=== PATIENT | female | born 1955 | race Caucasian/White ===

== ENCOUNTER 2021-08-17 15:21 | Inpatient (IN) | payer OTHER, MEDICAID ==
[~2021-08-17] VITALS: Ht 152.4 cm; Wt 81.9 kg
[~2021-08-17 15:21] MED LIST: LEVO125T69 PO; LITH150C8 PO; ZOLP-183 PO
[2021-08-17] MEDS ORDERED: ondansetron/PF 4mg/2ml inj IV ONE (16:25)
[2021-08-17] MEDS ORDERED: normal saline 1000ML IV soln IVB ONE ×2 (16:25→17:25)
[2021-08-17 16:37] LABS: CLARITY,URINE SLIGHTLY CLOUDY (Clear); COLOR,URINE YELLOW (Yellow); GLUCOSE, URINE NEGATIVE (Neg); KETONES,URINE TRACE mg/dl (Neg); LEUKOCYTE ESTERASE ,URINE NEGATIVE (Neg); NITRITES, URINE NEGATIVE (Neg); OCCULT BLOOD,URINE NEGATIVE (Neg); PH,URINE 5.5 (4.8-8.0); PROTEIN,URINE NEGATIVE (Neg); UROBILINOGEN,URINE 0.2 E.U/dL (0.2-1.0)
[2021-08-17 16:41] LABS: UA COLLECTION TYPE CLN CATCH MIDSTREAM
[2021-08-17 16:42] LABS: RBC,URINE NONE SEEN /HPF (0-2); WBC,URINE 0-4 /HPF (0-4)
[2021-08-17 16:43] LABS: BACTERIA,URINE FEW /HPF (Neg); MUCUS STRANDS FEW /LPF (Neg); SQUAMOUS EPITHELIAL CELL,UR MANY /LPF (FEW); STARCH,URINE MANY /HPF (NEGATIVE)
[2021-08-17 16:49] LABS: BASOPHILS # (AUTO) 0.1 X10'3 (0-0.2); BASOPHILS % (AUTO) 0.9 % (0-1); EOSINOPHILS # (AUTO) 0.1 X10'3 (0-0.9); EOSINOPHILS % (AUTO) 1.1 % (0-6); HEMATOCRIT 44.1 % (35.0-45.0); HEMOGLOBIN 14.7 g/dl (12.0-16.0); LYMPHOCYTES # (AUTO) 1.6 X10'3 (1.1-4.8); LYMPHOCYTES % (AUTO) 23.3 % (21-51); MEAN CORPUSCULAR HGB CONC 33.4 g/dL (33.0-36.5); MEAN PLATELET VOLUME 8.1 FL (7.4-10.4); MONOCYTES # (AUTO) 0.4 X10'3 (0-0.9); MONOCYTES % (AUTO) 5.6 % (2-12); NEUTROPHILS # (AUTO) 4.7 X10'3 (1.8-7.7); NEUTROPHILS % (AUTO) 69.1 % (42-75); PLATELET COUNT 360 X10'3 (140-440); RED BLOOD COUNT 5.25 X10'6 (4.20-5.60); RED CELL DISTRIBUTION WIDTH 15.9 % (11.5-14.5); WHITE BLOOD COUNT 6.8 X10'3 (4.5-11.0)
[2021-08-17 17:06] LABS: ALANINE AMINOTRANSFERASE 27 U/L (12-78); ALBUMIN 4.8 G/DL (3.4-5.0); ALBUMIN/GLOBULIN RATIO 1.5 (1.1-1.5); ALKALINE PHOSPHATASE 78 IU/L (46-116); ANION GAP 8 (8-16); ASPARTATE AMINO TRANSFERASE 18 U/L (10-37); BILIRUBIN,TOTAL 0.3 MG/DL (0.1-1.0); BLOOD UREA NITROGEN 55 MG/DL (7-18); BUN/CREATININE RATIO 16.6 (6.6-38.0); CALCIUM 10.4 MG/DL (8.5-10.1); CHLORIDE 101 MMOL/L (99-107); CREATININE 3.32 MG/DL (0.40-0.90); GLUCOSE 96 MG/DL (70-104); LIPASE 250 U/L (73-393); SODIUM 130 MMOL/L (135-145); TOTAL CARBON DIOXIDE 21.1 MMOL/L (24-32); TOTAL PROTEIN 7.9 G/DL (6.4-8.2); eGFR 14 ML/MIN
[2021-08-17 17:18] LABS: POTASSIUM 6.1 MMOL/L (3.5-5.1)
[2021-08-17] MEDS ORDERED: insulin regular, human U-100 3ml vial - multi-dose IV ONE (17:25)
[2021-08-17] MEDS ORDERED: calcium gluconate inj. 1 GM in normal saline 100ml IV soln 100 ML IV ONE (17:25)
[2021-08-17] MEDS ORDERED: dextrose 50%-water 50ml dispensing syringe IV ONE (17:25)
[2021-08-17] MEDS ORDERED: sodium bicarbonate (8.4%) 1 mEq/ml syringe IV ONE (17:25)
[2021-08-17] MEDS ORDERED: sodium polystyrene sulfonate 15gm/60ml oral suspension PO ONE (17:25)
[2021-08-17] MEDS ORDERED: CALCIUM GLUC 1gm/50ml NACL,iso 50 ML IV ONE (17:50)
[2021-08-17] MEDS ORDERED: magnesium 2GM in 50ml NS 50 ML IV PRN (18:25)
[2021-08-17] MEDS ORDERED: potassium Cl 20 mEq SR tablet PO PRN ×2 (18:25)
[2021-08-17] MEDS ORDERED: magnesium Cl slow-release 64mg tablet PO PRN (18:25)
[2021-08-17] MEDS ORDERED: acetaminophen 325mg tablet PO PRN (18:25)
[2021-08-17] MEDS ORDERED: magnesium 4gm in 100ml NS 100 ML IV PRN (18:25)
[2021-08-17] MEDS ORDERED: potassium CL 10mEq/100ml bag 100 ML IV PRN (18:25)
[2021-08-17] MEDS ORDERED: ondansetron/PF 4mg/2ml inj IV PRN (18:25)
--- NOTE | 2021-08-17 18:30 | NUR ---
Pt pink, alert, no acute/resp distress. PIV site c/d/i s complication or adverse. Family at bedside. Pt states she feels somewhat better.
[2021-08-17] MEDS: normal saline 1000ml 1,000 ML IV SCH (18:43)
[2021-08-17 18:44] LABS: MAGNESIUM 2.3 MG/DL (1.5-2.4)
[2021-08-17] MEDS: K and/or MAG REPLACEMENT MC SCH (20:00)
[2021-08-17] MEDS: hydrALAZINE 20mg/ml inj. IV SCH (20:00)
--- NOTE | 2021-08-17 20:30 | NUR ---
Pt pink, alert, no acute/resp distress. Bed in lowest position, wheels locked, call mcknight in reach. PIV site c/d/i s complication or adverse. PIV fluids infusing, no complications/adverse reaction. Pt able to reposition self PRN.
--- NOTE | 2021-08-17 22:25 | NUR ---
Pt pink, alert, no acute/resp distress. Bed in lowest position, wheels locked, call mcknight in reach. PIV site c/d/i s complication or adverse. PIV fluids infusing, no complications/adverse reaction. Pt able to reposition self PRN. Pt ambulatory to bathroom. No complications ambulating. Attempted to call report to PCU, nurse not availible, nurse to call down to ER for report when off break.
[2021-08-17 23:00] VITALS: BP 157/62
[2021-08-18 02:00] VITALS: BP 148/60
[2021-08-18] MEDS: hydrALAZINE 20mg/ml inj. IV SCH ×4 (02:00→20:35)
[2021-08-18] MEDS: normal saline 1000ml 1,000 ML IV SCH ×2 (04:25→06:53)
[2021-08-18 06:00] VITALS: BP 177/70
[2021-08-18 06:03] LABS: ALBUMIN 3.8 G/DL (3.4-5.0); ANION GAP 6 (8-16); BLOOD UREA NITROGEN 38 MG/DL (7-18); BUN/CREATININE RATIO 18.1 (6.6-38.0); CALCIUM 9.3 MG/DL (8.5-10.1); CHLORIDE 108 MMOL/L (99-107); GLUCOSE 83 MG/DL (70-104); MAGNESIUM 1.7 MG/DL (1.5-2.4); SODIUM 138 MMOL/L (135-145); TOTAL CARBON DIOXIDE 23.7 MMOL/L (24-32); eGFR 23 ML/MIN
[2021-08-18 06:16] LABS: POTASSIUM 6.1 MMOL/L (3.5-5.1)
[2021-08-18 06:20] LABS: BASOPHILS % (AUTO) 0.4 % (0-1); EOSINOPHILS # (AUTO) 0.1 X10'3 (0-0.9); EOSINOPHILS % (AUTO) 1.8 % (0-6); HEMATOCRIT 39.3 % (35.0-45.0); HEMOGLOBIN 12.9 g/dl (12.0-16.0); LYMPHOCYTES # (AUTO) 1.4 X10'3 (1.1-4.8); LYMPHOCYTES % (AUTO) 21.9 % (21-51); MEAN CORPUSCULAR HEMOGLOBIN 27.3 PG (27.0-31.0); MEAN CORPUSCULAR HGB CONC 32.7 g/dL (33.0-36.5); MEAN CORPUSCULAR VOLUME 83.4 FL (78-98); MEAN PLATELET VOLUME 8.4 FL (7.4-10.4); MONOCYTES # (AUTO) 0.4 X10'3 (0-0.9); MONOCYTES % (AUTO) 6.9 % (2-12); NEUTROPHILS # (AUTO) 4.3 X10'3 (1.8-7.7); PLATELET COUNT 271 X10'3 (140-440); RED BLOOD COUNT 4.71 X10'6 (4.20-5.60); RED CELL DISTRIBUTION WIDTH 16.1 % (11.5-14.5); WHITE BLOOD COUNT 6.2 X10'3 (4.5-11.0)
[2021-08-18] MEDS ORDERED: LISI40TA13 PO (06:20)
[2021-08-18] MEDS ORDERED: CHLO25TA10 PO (06:20)
[2021-08-18] MEDS ORDERED: MELO-102 PO (06:20)
[2021-08-18] MEDS ORDERED: LEVO137T2 PO (06:20)
[2021-08-18] MEDS ORDERED: METF-436 PO (06:20)
[2021-08-18] MEDS ORDERED: OMEP20CA16 PO (06:20)
[2021-08-18] MEDS ORDERED: ATEN50TA2 PO (06:20)
[2021-08-18] MEDS ORDERED: ONDA4TAB12 PO (06:20)
[2021-08-18] MEDS ORDERED: TRAZ-256 PO (06:20)
[2021-08-18] MEDS ORDERED: sodium polystyrene sulfonate 15gm/60ml oral suspension PO ONE (06:25)
--- NOTE | 2021-08-18 06:46 | NUR ---
Problems reprioritized. Patient report given, questions answered & plan of care reviewed with Cherry ESTRELLA.
[2021-08-18 07:04] LABS: HEMOGLOBIN A1C 5.9 % (4.5-6.2)
[2021-08-18] MEDS: K and/or MAG REPLACEMENT MC SCH ×2 (07:37→20:00)
--- NOTE | 2021-08-18 07:40 | NUR ---
Patient in room PCU 3013. I have received report from Soo ESTRELLA and had the opportunity to ask questions and assume patient care.
--- NOTE | 2021-08-18 08:15 | NUR ---
Diabetes consult: No hx of DM mentioned in MD note, current A1c 5.9 which does not classify as DM per ADA guidelines. DM ed not indicated. Addendum: 08/18/21 at [address] Amended: Links added.
[2021-08-18 10:57] LABS: ALBUMIN 3.7 G/DL (3.4-5.0); ANION GAP 13 (8-16); BLOOD UREA NITROGEN 32 MG/DL (7-18); BUN/CREATININE RATIO 17.6 (6.6-38.0); CALCIUM 8.8 MG/DL (8.5-10.1); CHLORIDE 106 MMOL/L (99-107); CREATININE 1.82 MG/DL (0.40-0.90); GLUCOSE 81 MG/DL (70-104); SODIUM 140 MMOL/L (135-145); TOTAL CARBON DIOXIDE 20.9 MMOL/L (24-32); eGFR 28 ML/MIN
[2021-08-18 11:00] VITALS: BP 155/71
[2021-08-18 11:01] LABS: POTASSIUM 5.4 MMOL/L (3.5-5.1)
[2021-08-18 15:00] VITALS: BP 165/73
--- NOTE | 2021-08-18 17:27 | NUR ---
Large Bowel Movement Achieved soft non formed
--- NOTE | 2021-08-18 18:50 | NUR ---
Patient in room PCU 3013. I have received report from Cherry ESTRELLA and had the opportunity to ask questions and assume patient care.
[2021-08-18 19:15] VITALS: BP 161/66
--- NOTE | 2021-08-18 20:42 | NUR ---
patient refused second dose of sodium polystyrene sulfonate for day shift and again for this resume writer.
[2021-08-18 22:20] VITALS: BP 119/77
[2021-08-19] MEDS: hydrALAZINE 20mg/ml inj. IV SCH ×2 (01:51→07:34)
[2021-08-19 02:10] VITALS: BP 167/60
[2021-08-19] MEDS: normal saline 1000ml 1,000 ML IV SCH (04:49)
[2021-08-19 05:57] LABS: BASOPHILS % (AUTO) 0.8 % (0-1); EOSINOPHILS # (AUTO) 0.2 X10'3 (0-0.9); EOSINOPHILS % (AUTO) 3.6 % (0-6); HEMOGLOBIN 13.3 g/dl (12.0-16.0); LYMPHOCYTES # (AUTO) 1.4 X10'3 (1.1-4.8); LYMPHOCYTES % (AUTO) 25.5 % (21-51); MEAN CORPUSCULAR HGB CONC 33.3 g/dL (33.0-36.5); MEAN CORPUSCULAR VOLUME 84.1 FL (78-98); MEAN PLATELET VOLUME 8.1 FL (7.4-10.4); MONOCYTES # (AUTO) 0.5 X10'3 (0-0.9); MONOCYTES % (AUTO) 8.6 % (2-12); NEUTROPHILS # (AUTO) 3.4 X10'3 (1.8-7.7); NEUTROPHILS % (AUTO) 61.5 % (42-75); PLATELET COUNT 245 X10'3 (140-440); RED BLOOD COUNT 4.75 X10'6 (4.20-5.60); RED CELL DISTRIBUTION WIDTH 16.2 % (11.5-14.5); WHITE BLOOD COUNT 5.4 X10'3 (4.5-11.0)
[2021-08-19 06:00] VITALS: BP 192/66
[2021-08-19 06:00] LABS: ALBUMIN 3.8 G/DL (3.4-5.0); ANION GAP 11 (8-16); BLOOD UREA NITROGEN 19 MG/DL (7-18); BUN/CREATININE RATIO 13.6 (6.6-38.0); CHLORIDE 108 MMOL/L (99-107); GLUCOSE 114 MG/DL (70-104); MAGNESIUM 1.5 MG/DL (1.5-2.4); POTASSIUM 4.5 MMOL/L (3.5-5.1); SODIUM 141 MMOL/L (135-145); TOTAL CARBON DIOXIDE 21.6 MMOL/L (24-32); eGFR 38 ML/MIN
--- NOTE | 2021-08-19 06:44 | NUR ---
Patient in room PCU 3013. I have received report from SAMEER HOLT, and had the opportunity to ask questions and assume patient care.
[2021-08-19 07:34] VITALS: BP 175/87
[2021-08-19 11:00] VITALS: BP 166/73
--- NOTE | 2021-08-19 12:45 | NUR ---
PT STABLE FOR DISCHARGE PER MD. DISCHARGE AND FOLLOW UP INSTRUCTIONS REVIEWED WITH PT. TELE BOX REMOVED. PIV REMOVED WITH TIP INTACT. PT WAS DISCHARGED TO HOME. PT WAS TRANSFERRED TO PRIVATE VEHICLE BY HOSPITAL STAFF.
--- NOTE | 2021-08-19 12:47 | NUR ---
RELIEVING RN FOR LUNCH, PT AMB WITH STEADY GAIT TO ELEVATOR, REFUSING WHEELCHAIR AT THIS TIME, DC'D HOME WITH FAMILY
== END 2021-08-19 12:49 | disposition home or self-care (01) | DRG 683 ==
LOC: ER 15:21 → ED HOLD 18:31 → UNDOADMIN 19:27 → PCU 3S 23:14
PROVIDERS: ADMIT Internal Medicine; ATTEND Internal Medicine
DX: N17.0 Acute kidney failure with tubular necrosis (principal); E87.1 Hypo-osmolality and hyponatremia; E87.5 Hyperkalemia; E03.9 Hypothyroidism, unspecified; E11.9 Type 2 diabetes mellitus without complications; F31.9 Bipolar disorder, unspecified; T50.2X5A Adverse effect of carbonic-anhydrase inhibitors, benzothiadiazides and other diuretics, initial encounter; F17.210 Nicotine dependence, cigarettes, uncomplicated; F41.9 Anxiety disorder, unspecified; G47.00 Insomnia, unspecified; I10 Essential (primary) hypertension; K21.9 Gastro-esophageal reflux disease without esophagitis; Z79.84 Long term (current) use of oral hypoglycemic drugs; Z79.899 Other long term (current) drug therapy; Z98.49 Cataract extraction status, unspecified eye; Y92.89 Other specified places as the place of occurrence of the external cause; Z79.890 Hormone replacement therapy
CPT/HCPCS: 36415; 80048; 80053; 81001; 83036; 83690; 83735; 85025; 87081; 93005; 96361; 96365; 96375; 97110; 97161; 97530; 99285; G0378; J0360; J0610; J1815; J2405; J3490; J7030

== ENCOUNTER 2022-02-12 21:47 | Inpatient (IN) | payer OTHER, MEDICAID ==
[~2022-02-12] VITALS: Ht 157.5 cm; Wt 69.4 kg
[~2022-02-12 21:47] MED LIST changes: +ALEN70TA80 PO; +AMLO5TAB16 PO; +ASCO-134 PO; +ATEN50TA2 PO; +FERR325T28 PO; -LEVO125T69 PO; +LEVO125T8 PO; +LISI40TA13 PO; -LITH150C8 PO; +METF-436 PO; +OMEP20CA16 PO; +TRAZ-256 PO; -ZOLP-183 PO
[2022-02-12] MEDS ORDERED: normal saline 1000ML IV soln IVB ONE ×2 (22:20→23:40)
[2022-02-12 22:41] LABS: BASOPHILS # (AUTO) 0.1 X10'3 (0-0.2); EOSINOPHILS # (AUTO) 0.1 X10'3 (0-0.9); EOSINOPHILS % (AUTO) 0.8 % (0-6); HEMATOCRIT 32.7 % (35.0-45.0); HEMOGLOBIN 10.9 g/dl (12.0-16.0); LYMPHOCYTES % (AUTO) 17.3 % (21-51); MEAN CORPUSCULAR HEMOGLOBIN 25.2 PG (27.0-31.0); MEAN CORPUSCULAR HGB CONC 33.3 g/dL (33.0-36.5); MEAN CORPUSCULAR VOLUME 75.7 FL (78-98); MEAN PLATELET VOLUME 8.8 FL (7.4-10.4); MONOCYTES # (AUTO) 1.2 X10'3 (0-0.9); MONOCYTES % (AUTO) 9.8 % (2-12); NEUTROPHILS # (AUTO) 8.4 X10'3 (1.8-7.7); NEUTROPHILS % (AUTO) 71.1 % (42-75); PLATELET COUNT 400 X10'3 (140-440); RED BLOOD COUNT 4.32 X10'6 (4.20-5.60); RED CELL DISTRIBUTION WIDTH 19.6 % (11.5-14.5); WHITE BLOOD COUNT 11.8 X10'3 (4.5-11.0)
[2022-02-12 23:07] LABS: ALANINE AMINOTRANSFERASE 34 U/L (12-78); ALBUMIN 4.2 G/DL (3.4-5.0); ALBUMIN/GLOBULIN RATIO 1.4 (1.1-1.5); ALKALINE PHOSPHATASE 99 IU/L (46-116); ANION GAP 16 (8-16); ASPARTATE AMINO TRANSFERASE 22 U/L (10-37); BILIRUBIN,TOTAL 0.5 MG/DL (0.1-1.0); BLOOD UREA NITROGEN 15 MG/DL (7-18); BUN/CREATININE RATIO 8.2 (6.6-38.0); CALCIUM 11.1 MG/DL (8.5-10.1); CHLORIDE 107 MMOL/L (99-107); CREATININE 1.82 MG/DL (0.40-0.90); ETHANOL < 0.010 GM/DL (0.0-0.010); GLUCOSE 103 MG/DL (70-104); POTASSIUM 4.1 MMOL/L (3.5-5.1); SODIUM 144 MMOL/L (135-145); TOTAL CARBON DIOXIDE 20.6 MMOL/L (24-32); TOTAL PROTEIN 7.3 G/DL (6.4-8.2); eGFR 28 ML/MIN
[2022-02-12] MEDS ORDERED: OLANZapine 2.5MG tablet PO STA (23:36)
[2022-02-12] MEDS ORDERED: quetiapine 100mg tablet PO STA (23:36)
--- NOTE | 2022-02-13 00:30 | NUR ---
PT ALTERED, DOES NOT ANSWER QUESTIONS REGARDING MEDICAL STATE AND HX APPROPRIATELY.
[2022-02-13 00:50] LABS: PLATELET ESTIMATE NORMAL
[2022-02-13 00:51] LABS: ANISOCYTOSIS 2+
[2022-02-13 00:52] LABS: LARGE PLATELETS FEW
[2022-02-13] MEDS ORDERED: LORazepam 2 mg/ml vial IM ONE (01:20)
[2022-02-13] MEDS ORDERED: haloperidol lactate 5mg/ml inj IM ONE (01:20)
[2022-02-13] MEDS ORDERED: diphenhydrAMINE 50 mg/ml inj IM ONE (01:20)
[2022-02-13] MEDS ORDERED: nicotine 21mg patch - 24 hr TD ONE (01:20)
--- NOTE | 2022-02-13 01:30 | NUR ---
PT BECAME AGITATED AND AGRESSIVE DURING STRAIGHT CATH PROCEDURE. STARTED YELLING AND RIPING OFF VS MONITOR EQUIPMENT. PT MADE THREATS TO STAFF STATING "I COULD TAKE ALL FIVE OF YOU ON". SECURITY CALLED. ORDERS RECIEVED.
[2022-02-13 05:52] LABS: CLARITY,URINE CLEAR (Clear); COLOR,URINE YELLOW (Yellow); GLUCOSE, URINE NEGATIVE (Neg); KETONES,URINE TRACE mg/dl (Neg); LEUKOCYTE ESTERASE ,URINE TRACE (Neg); NITRITES, URINE NEGATIVE (Neg); OCCULT BLOOD,URINE NEGATIVE (Neg); PH,URINE 6.5 (4.8-8.0); PROTEIN,URINE TRACE mg/dl (Neg); UROBILINOGEN,URINE 0.2 E.U/dL (0.2-1.0)
[2022-02-13 05:57] LABS: URINE AMPHETAMINE SCREEN POSITIVE (Neg); URINE BARBITUATE SCREEN NEGATIVE (Neg); URINE BENZODIAZEPINES SCREEN NEGATIVE (Neg); URINE CANNABINOID SCREEN NEGATIVE (Neg); URINE COCAINE SCREEN NEGATIVE (Neg); URINE METHADONE SCREEN NEGATIVE (Neg); URINE OPIATE SCREEN NEGATIVE (Neg); URINE PHENCYCLIDINE SCREEN NEGATIVE (Neg)
[2022-02-13 05:58] LABS: UA COLLECTION TYPE STRAIGHT CATH
[2022-02-13 06:00] LABS: RBC,URINE NONE SEEN /HPF (0-2)
[2022-02-13 06:01] LABS: BACTERIA,URINE FEW /HPF (Neg); MUCUS STRANDS FEW /LPF (Neg); SQUAMOUS EPITHELIAL CELL,UR MANY /LPF (FEW)
[2022-02-13] MEDS ORDERED: dextrose ORAL solution 15 GM/59 ML bottle PO ONE (06:05)
[2022-02-13] MEDS ORDERED: glucagon, human recombinant 1mg kit ONE (06:07)
--- NOTE | 2022-02-13 06:30 | NUR ---
Patient asleep, no signs of distress noted, accucheck collected, patient arousable to tactile stimulus. All safety measures in place.
--- NOTE | 2022-02-13 10:12 | NUR ---
[facility] states they will place patient on a 5150 hold at this time. Patient aware, unable to get a hold of patient's brother. Patient verbalized understanding, within sight of staff at all times.
--- NOTE | 2022-02-13 13:34 | NUR ---
Patient to Bed 23 from Main ED OF. Patient given warm blanket and laying on her right side. No distress observed. Continue to monitor.
--- NOTE | 2022-02-13 15:10 | NUR ---
Patient sleeping heavily. RN assisted Registration clerks to get information from patient Patient falls asleep between questions. Continue to monitor.
[2022-02-13] MEDS ORDERED: ALEN70TA60 PO (15:56)
[2022-02-13] MEDS ORDERED: AMLO5TAB PO (15:56)
[2022-02-13] MEDS ORDERED: FERR325T28 PO (15:56)
--- NOTE | 2022-02-13 16:51 | NUR ---
RN completed patient's Med Rec from external and verified medications with patient. Patient falls back asleep easily. Continue to monitor.
--- NOTE | 2022-02-13 16:58 | NUR ---
Patient's at bedside. appears very attentive to patient. Continue to monitor.
[2022-02-13] MEDS ORDERED: non-formulary drug (Alendronate Sodium* (Fosamax*) 1 TAB) PO SCH (18:05)
--- NOTE | 2022-02-13 18:32 | NUR ---
Patient sitting up and eating dinner. No distress observed.
[2022-02-13] MEDS: ferrous sulfate 325mg tablet PO SCH (19:50)
[2022-02-13 20:00] VITALS: BP 127/46
[2022-02-13] MEDS ORDERED: magnesium hydroxide 30ml (MOM) UD suspension PO PRN (20:05)
[2022-02-13] MEDS ORDERED: acetaminophen 325mg tablet PO PRN ×2 (20:05)
[2022-02-13] MEDS ORDERED: mag hydrox/Alum hydrox/simeth 30ml oral suspension PO PRN (20:05)
[2022-02-13] MEDS ORDERED: loperamide 2mg capsule PO PRN (20:05)
[2022-02-13] MEDS ORDERED: NICOTINE POLACRILEX 2 MG LOZENGE BC PRN (20:05)
[2022-02-13] MEDS: traZODone 50mg tablet PO SCH (21:00)
--- NOTE | 2022-02-13 21:43 | NUR ---
NURSING ADMISSION NOTE Pt was admitted to [facility] from ER overflow on 02/13/22 at 2000. Pt belongings inventoried, offered a shower which she declined. 5150 advisement completed, pt verbalized understanding. Pt was found in neighbor's lawn EMS called. Pt positive for methamphetamine. PT reports drinking 1 mixed drink per day but has not had any alcohol since 02/10/22. Pt was placed on a 5150 for behaving impulsively and erratically, making nonsensical statements and presenting disorganized. Pt has hx of bipolar disorder and a hx of psych hospitalizations. HX: diabetic type 2, HTN
[2022-02-14] MEDS: pantoprazole 40mg Tablet.DR PO SCH (07:32)
[2022-02-14] MEDS: nicotine 21mg patch - 24 hr TD SCH (07:32)
[2022-02-14] MEDS: lisinopril 20mg tablet PO SCH (07:34)
[2022-02-14] MEDS: levoTHYROXINE 125mcg tablet PO SCH (07:34)
[2022-02-14] MEDS: ferrous sulfate 325mg tablet PO SCH ×2 (07:35→20:29)
[2022-02-14 07:53] VITALS: BP 145/63
[2022-02-14] MEDS ORDERED: amLODIPine 5mg tablet PO SCH (08:00)
[2022-02-14] MEDS ORDERED: amLODIPine 5mg tablet PO ONE (08:45)
[2022-02-14 09:25] LABS: CHOLESTEROL 185 MG/DL (0-200); HDL CHOLESTEROL 35 MG/DL (35-60)
[2022-02-14 09:26] LABS: CHOL/HDL RATIO 5.3 (0.00-4.99); LDL CHOLESTEROL 123 MG/DL (50-100); TRIGLYCERIDES 120 MG/DL (20-135)
[2022-02-14] MEDS ORDERED: DEXTROSE 15 GM of carb/4 tabs (each vial/BOTTLE has 4 tablets) PO PRN ×2 (12:05)
[2022-02-14] MEDS ORDERED: glucagon, human recombinant 1mg kit SUBCUT PRN (12:05)
[2022-02-14] MEDS ORDERED: MESSAGE TO PHARMACY PO ONE (12:05)
[2022-02-14] MEDS ORDERED: insulin Lispro (HumaLOG) vial - multi-dose SQ SCH (12:05)
[2022-02-14] MEDS ORDERED: dextrose 50%-water 50ml dispensing syringe IV PRN ×2 (12:05)
--- NOTE | 2022-02-14 12:09 | NUR ---
DM consult: Per EMR pt with T2DM, well controlled with A1c 5.5% down from 5.9% 08/08/21 per EMR. TC to RN with recommendation for diet liberalization to regular from CHO controlled in view of current A1c with BG range 67-103 mg/dL since admit. Will continue to follow. Addendum: 02/14/22 at [address] Amended: Links added.
--- NOTE | 2022-02-14 17:44 | NUR ---
Nursing Progress Note: Problem: Pt was admitted to [facility] from ER overflow on 02/13/22 at 2000. Pt belongings inventoried, offered a shower which she declined. 5150 advisement completed, pt verbalized understanding. Pt was found in neighbor's lawn EMS called. Pt positive for methamphetamine. PT reports drinking 1 mixed drink per day but has not had any alcohol since 02/10/22. Pt was placed on a 5150 for behaving impulsively and erratically, making nonsensical statements and presenting disorganized. Pt has hx of bipolar disorder and a hx of psych hospitalizations. Diabetic type 2, HTN. Interventions: Establishment of rapport, ensured contract for safety, therapeutic conversation, active listening, medication administration/education/monitoring, monitoring glucose, provided distraction, direction, positive reinforcement, and Q15 minute safety checks. Response: received patient sleeping in bed at shift change. Patient awakens for breakfast and takes her medications as directed. Patient then goes to sleep and appears as though she is crashing from methamphetamine withdrawal. Patient does wake up and answer questions appropriately, and requests a shower, but then goes right back to sleep stating that she is tired. Patient does appear to be confused on basic questions about herself. Hospitalist in to see patient and ordered q.i.d. blood glucose monitoring, which at 12:00 was 107. A note was written to the pharmacy to DC all sulfonylurea medications. Plan: Patient requires interruption of current crisis and medication adjustments in a safe and therapeutic environment.
[2022-02-14 19:00] VITALS: BP 134/71
[2022-02-14] MEDS: traZODone 50mg tablet PO SCH (20:29)
[2022-02-14] MEDS ORDERED: insulin glargine (Lantus) pen - multi-dose SQ SCH (21:00)
--- NOTE | 2022-02-15 03:54 | NUR ---
Nursing Progress Note: Problem: Pt was admitted to [facility] from ER overflow on 02/13/22 at 1999. Pt belongings inventoried, offered a shower which she declined. 5150 advisement completed, pt verbalized understanding. Pt was found in neighbor's lawn EMS called. Pt positive for methamphetamine. PT reports drinking 1 mixed drink per day but has not had any alcohol since 02/10/22. Pt was placed on a 5150 for behaving impulsively and erratically, making nonsensical statements and presenting disorganized. Pt has hx of bipolar disorder and a hx of psych hospitalizations. Diabetic type 2, HTN. Interventions: Establishment of rapport, ensured contract for safety, therapeutic conversation, active listening, medication administration/education/monitoring, provided direction, positive reinforcement, and Q15 minute safety checks. Response: Patient eating dinner with peers in dining room. Patient then goes back to bed. [place] BLAISE'd. Patient takes her medications after sleeping and continues sleeping throughout the night. Plan: Patient requires interruption of current crisis and medication adjustments in a safe and therapeutic environment.
[2022-02-15] MEDS: nicotine 21mg patch - 24 hr TD SCH ×2 (08:00→08:11)
[2022-02-15] MEDS: amLODIPine 5mg tablet PO SCH (08:12)
[2022-02-15] MEDS: atorvastatin 20mg tablet PO SCH (08:13)
[2022-02-15] MEDS: pantoprazole 40mg Tablet.DR PO SCH (08:13)
[2022-02-15] MEDS: ferrous sulfate 325mg tablet PO SCH ×2 (08:13→20:08)
[2022-02-15] MEDS: levoTHYROXINE 125mcg tablet PO SCH (08:13)
[2022-02-15] MEDS: lisinopril 20mg tablet PO SCH (08:13)
[2022-02-15 08:57] VITALS: BP 153/63
[2022-02-15 10:20] LABS: CHOL/HDL RATIO 5.5 (0.00-4.99); CHOLESTEROL 180 MG/DL (0-200); HDL CHOLESTEROL 33 MG/DL (35-60); LDL CHOLESTEROL 117 MG/DL (50-100); TRIGLYCERIDES 106 MG/DL (20-135)
--- NOTE | 2022-02-15 16:55 | NUR ---
Nursing Progress Note: Problem: Pt was admitted to [facility] from ER overflow on 02/13/22. Pt was found in neighbor's lawn EMS called. Pt positive for methamphetamine. PT reports drinking 1 mixed drink per day but has not had any alcohol since 02/10/22. Pt was placed on a 5150 for behaving impulsively and erratically, making nonsensical statements and presenting disorganized. Pt has hx of bipolar disorder and a hx of psych hospitalizations. Diabetic type 2, HTN. Interventions: Establishment of rapport, ensured contract for safety, therapeutic conversation, active listening, medication administration/education/monitoring, monitoring glucose, provided distraction, direction, positive reinforcement, and Q15 minute safety checks. Response: Patient is resting quietly in bed at the start of the shift. Cooperative with medications and assessment. Patient joins her peers in the community room for meals and interacts appropriately. Noted watching TV in the community room at times. Patient denies any mental health symptoms at this time. Some confusion/ disorientation is noted. Isolates to her room most of the day. Plan: Patient requires interruption of current crisis and medication adjustments in a safe and therapeutic environment.
[2022-02-15 19:00] VITALS: BP 151/90
[2022-02-15] MEDS: ARIPIPRAZOLE 10 MG TABLET PO SCH (20:08)
[2022-02-15] MEDS: traZODone 50mg tablet PO SCH (20:08)
--- NOTE | 2022-02-16 00:25 | NUR ---
Nursing Progress Note: Problem: Pt was admitted to [facility] from ER overflow on 02/13/22. Pt was found in neighbor's lawn EMS called. Pt positive for methamphetamine. PT reports drinking 1 mixed drink per day but has not had any alcohol since 02/10/22. Pt was placed on a 5150 for behaving impulsively and erratically, making nonsensical statements and presenting disorganized. Pt has hx of bipolar disorder and a hx of psych hospitalizations. Diabetic type 2, HTN. Interventions: Establishment of rapport, ensured contract for safety, therapeutic conversation, active listening, medication administration/education/monitoring, monitoring glucose, provided distraction, direction, positive reinforcement, and Q15 minute safety checks. Response: Patient is resting quietly in bed at the start of the shift. Noted talking on the phone in the evening. Isolates to her room in the evening. Cooperative with assessment and medications. Denies any mental health symptoms. Participates in snack then goes to bed. Plan: Patient requires interruption of current crisis and medication adjustments in a safe and therapeutic environment.
[2022-02-16 08:00] VITALS: BP 164/80
[2022-02-16] MEDS: atorvastatin 20mg tablet PO SCH (08:01)
[2022-02-16] MEDS: levoTHYROXINE 125mcg tablet PO SCH (08:01)
[2022-02-16] MEDS: ferrous sulfate 325mg tablet PO SCH ×2 (08:01→20:27)
[2022-02-16] MEDS: lisinopril 20mg tablet PO SCH (08:02)
[2022-02-16] MEDS: amLODIPine 5mg tablet PO SCH (08:02)
[2022-02-16] MEDS: pantoprazole 40mg Tablet.DR PO SCH (08:02)
--- NOTE | 2022-02-16 16:58 | NUR ---
Nursing Progress Note: Problem: Pt was admitted to [facility] from ER overflow on 02/13/22. Pt was found on neighbor's lawn and EMS was called. Patient was positive for methamphetamine. PT reports drinking 1 mixed drink per day but has not had any alcohol since 02/10/22. Pt was placed on a 5150 for behaving impulsively and erratically, making nonsensical statements and presenting disorganized. Pt has history of bipolar disorder and a history of psych hospitalizations. Diabetic type 2, HTN. Interventions: Establishment of rapport, ensured contract for safety, therapeutic conversation, active listening, medication administration/education/monitoring, monitoring glucose, provided distraction, direction, positive reinforcement, and Q15 minute safety checks. Response: Received patient who was sleeping up until breakfast arrived on the unit at 0800. Patient was awakened at that time and 0800 medications were administered. Patient woke up and then ambulated to the Community Room for breakfast. Patient appeared disorganized in her speech and location, then was able to be reoriented. Patient reports I am Bipolar, and reports she smokes cigarettes but denies a need for a Nicotine Patch. Patient ambulated back and forth to/from the Community Room stating I didnt sleep last night at all. Patient reported I dont want to discuss things anymore. Patient slept all morning then did not participate in morning snack time. Patient remained calm and cooperative throughout the daytime. Patient fell asleep after lunch then participated in snack time at 1500. Denies SI, AH & VH. Patient stated Rain just got to get my medications figured out. Will continue to monitor patient. Plan: Patient requires interruption of current crisis and medication adjustments in a safe and therapeutic environment.
[2022-02-16 20:03] VITALS: BP 141/90
[2022-02-16] MEDS: ARIPIPRAZOLE 10 MG TABLET PO SCH (20:27)
[2022-02-16] MEDS: traZODone 50mg tablet PO SCH (20:27)
--- NOTE | 2022-02-17 00:14 | NUR ---
Nursing Progress Note: Problem: Pt was admitted to [facility] from ER overflow on 02/13/22. Pt was found on neighbor's lawn and EMS was called. Patient was positive for methamphetamine. PT reports drinking 1 mixed drink per day but has not had any alcohol since 02/10/22. Pt was placed on a 5150 for behaving impulsively and erratically, making nonsensical statements and presenting disorganized. Pt has history of bipolar disorder and a history of psych hospitalizations. Diabetic type 2, HTN. Interventions: Establishment of rapport, ensured contract for safety, therapeutic conversation, active listening, medication administration/education/monitoring, monitoring glucose, provided distraction, direction, positive reinforcement, and Q15 minute safety checks. Response: Pt lying in bed at start of shift. Pt got up and came to group room for snack. Socialized with other pts While eating snack than returned to room. Pt pleasant and cooperative for 1:1 assessment. Denies SI/A/V/ H. Pt says she is expecting to return to her home where she lives with her in a couple of days. She talked about her Alcohol and drug use. She is a daily user of Meth for at least the last ten years. She said when she was younger she used Cocaine. She talked a little about going to a rehab at discharge but her conversation became a little disorganized and she became guarded. Plan: Patient requires interruption of current crisis and medication adjustments in a safe and therapeutic environment.
--- NOTE | 2022-02-17 07:20 | NUR ---
Initial: Pt admitted w/ bipolar disorder per EMR. Currently on Carb control diet w/ mostly 75-100% intake of meals meeting est needs at this time. Strongly recommend liberalizing to Regular diet given A1c, BG mostly WNL through LOS and pt not on glycemic protocol. LBM 02/14. Will continue to monitor. Recs: 1. Liberalize to REGULAR DIET 2. Bowel care PRN 3. Weekly wts Addendum: 02/17/22 at [address] Amended: Links added.
[2022-02-17] MEDS: pantoprazole 40mg Tablet.DR PO SCH (07:54)
[2022-02-17] MEDS: atorvastatin 20mg tablet PO SCH (07:54)
[2022-02-17] MEDS: amLODIPine 5mg tablet PO SCH (07:54)
[2022-02-17] MEDS: levoTHYROXINE 125mcg tablet PO SCH (07:54)
[2022-02-17] MEDS: ferrous sulfate 325mg tablet PO SCH ×2 (07:55→20:52)
[2022-02-17] MEDS: lisinopril 20mg tablet PO SCH (07:55)
[2022-02-17 08:40] VITALS: BP 170/85
[2022-02-17 12:06] LABS: BASOPHILS # (AUTO) 0.1 X10'3 (0-0.2); BASOPHILS % (AUTO) 1.2 % (0-1); EOSINOPHILS # (AUTO) 0.2 X10'3 (0-0.9); EOSINOPHILS % (AUTO) 1.8 % (0-6); HEMATOCRIT 36.5 % (35.0-45.0); HEMOGLOBIN 11.9 g/dl (12.0-16.0); LYMPHOCYTES # (AUTO) 1.3 X10'3 (1.1-4.8); LYMPHOCYTES % (AUTO) 14.9 % (21-51); MEAN CORPUSCULAR HEMOGLOBIN 25.6 PG (27.0-31.0); MEAN CORPUSCULAR HGB CONC 32.7 g/dL (33.0-36.5); MEAN CORPUSCULAR VOLUME 78.2 FL (78-98); MEAN PLATELET VOLUME 8.8 FL (7.4-10.4); MONOCYTES # (AUTO) 0.7 X10'3 (0-0.9); MONOCYTES % (AUTO) 7.8 % (2-12); NEUTROPHILS # (AUTO) 6.3 X10'3 (1.8-7.7); NEUTROPHILS % (AUTO) 74.3 % (42-75); PLATELET COUNT 344 X10'3 (140-440); RED BLOOD COUNT 4.67 X10'6 (4.20-5.60); RED CELL DISTRIBUTION WIDTH 19.9 % (11.5-14.5); WHITE BLOOD COUNT 8.5 X10'3 (4.5-11.0)
[2022-02-17 12:27] LABS: ALANINE AMINOTRANSFERASE 25 U/L (12-78); ALBUMIN 3.4 G/DL (3.4-5.0); ALBUMIN/GLOBULIN RATIO 1.1 (1.1-1.5); ALKALINE PHOSPHATASE 89 IU/L (46-116); ANION GAP 5 (8-16); ASPARTATE AMINO TRANSFERASE 17 U/L (10-37); BILIRUBIN,TOTAL 0.3 MG/DL (0.1-1.0); BLOOD UREA NITROGEN 16 MG/DL (7-18); BUN/CREATININE RATIO 13.4 (6.6-38.0); CALCIUM 9.2 MG/DL (8.5-10.1); CHLORIDE 108 MMOL/L (99-107); CREATININE 1.19 MG/DL (0.40-0.90); GLUCOSE 124 MG/DL (70-104); POTASSIUM 4.1 MMOL/L (3.5-5.1); SODIUM 139 MMOL/L (135-145); TOTAL CARBON DIOXIDE 25.7 MMOL/L (24-32); TOTAL PROTEIN 6.4 G/DL (6.4-8.2); eGFR 45 ML/MIN
--- NOTE | 2022-02-17 17:26 | NUR ---
Nursing Progress Note: Problem: Pt was admitted to [facility] from ER overflow on 02/13/22. Pt was found on neighbor's lawn and EMS was called. Patient was positive for methamphetamine. PT reports drinking 1 mixed drink per day but has not had any alcohol since 02/10/22. Pt was placed on a 5150 for behaving impulsively and erratically, making nonsensical statements and presenting disorganized. Pt has history of bipolar disorder and a history of psych hospitalizations. Diabetic type 2, HTN. Interventions: Establishment of rapport, ensured contract for safety, therapeutic conversation, active listening, medication administration/education/monitoring, monitoring glucose, provided distraction, direction, positive reinforcement, and Q15 minute safety checks. Response: Patient was woke up at 0800 and her medications were administered to her at that time. Patient was informed that breakfast had arrived to the unit, and she could go to the Community Room to eat at this time. Patient ambulated and sat by her roommate and two other peers for breakfast. Patient appeared slightly disorganized at times and denies AH/VH. Patient participated in the Group Meeting held right after lunch today, then returned to rest in bed. Patient then showered late afternoon and felt much better. Will continue to monitor patient. Plan: Patient requires interruption of current crisis and medication adjustments in a safe and therapeutic environment.
[2022-02-17] MEDS ORDERED: traZODone 50mg tablet PO PRN (17:45)
[2022-02-17 19:51] VITALS: BP 162/88
[2022-02-17] MEDS: traZODone 50mg tablet PO SCH (20:52)
--- NOTE | 2022-02-18 02:05 | NUR ---
Nursing Progress Note: Problem: Pt was admitted to [facility] from ER overflow on 02/13/22. Pt was found on neighbor's lawn and EMS was called. Patient was positive for methamphetamine. PT reports drinking 1 mixed drink per day but has not had any alcohol since 02/10/22. Pt was placed on a 5150 for behaving impulsively and erratically, making nonsensical statements and presenting disorganized. Pt has history of bipolar disorder and a history of psych hospitalizations. Diabetic type 2, HTN. Interventions: Establishment of rapport, ensured contract for safety, therapeutic conversation, active listening, medication administration/education/monitoring, monitoring glucose, provided distraction, direction, positive reinforcement, and Q15 minute safety checks. Response: Pt up on unit at start of shift. Watched football game in group room with peers. Took meds. Educated on new order for additional dose of Trazodone if needed for sleep. Pt verbalized understanding. Went to bed and went to sleep. Plan: Patient requires interruption of current crisis and medication adjustments in a safe and therapeutic environment.
[2022-02-18] MEDS: ARIPIPRAZOLE 10 MG TABLET PO SCH (08:06)
[2022-02-18] MEDS: levoTHYROXINE 125mcg tablet PO SCH (08:06)
[2022-02-18] MEDS: ferrous sulfate 325mg tablet PO SCH ×2 (08:07→20:49)
[2022-02-18] MEDS: atorvastatin 20mg tablet PO SCH (08:07)
[2022-02-18] MEDS: amLODIPine 5mg tablet PO SCH (08:08)
[2022-02-18] MEDS: pantoprazole 40mg Tablet.DR PO SCH (08:09)
[2022-02-18] MEDS: lisinopril 20mg tablet PO SCH (08:09)
[2022-02-18 08:48] VITALS: BP 142/64
--- NOTE | 2022-02-18 17:41 | NUR ---
Nursing Progress Note: Problem: Pt was admitted to [facility] from ER overflow on 02/13/22. Pt was found on neighbor's lawn and EMS was called. Patient was positive for methamphetamine. PT reports drinking 1 mixed drink per day but has not had any alcohol since 02/10/22. Pt was placed on a 5150 for behaving impulsively and erratically, making nonsensical statements and presenting disorganized. Pt has history of bipolar disorder and a history of psych hospitalizations. Diabetic type 2, HTN. Interventions: Establishment of rapport, ensured contract for safety, therapeutic conversation, active listening, medication administration/education/monitoring, monitoring glucose, provided distraction, direction, positive reinforcement, and Q15 minute safety checks. Response: Received patient when I woke her up at 0805 to take her medications before going to the Community Room for breakfast. Patient assessment and interview completed after breakfast. Patient is linear and denies SI, AH/VH. Patient is pleasant and cooperative. Patient was out of bed most all of today, watching TV in the Community Room and talking with peers. Patient did not receive any prn medications today. At 1630, patient was moved to Room 322A and introduced to her new roommate. Patient lied down at this time to rest in bed before dinner. Plan: Patient will discharge on February 20 after 1800 ( will pick her up from his way home from work in [place]. Patient's will pick her up at 1800 or shortly thereafter.) Patient requires interruption of current crisis and medication adjustments in a safe and therapeutic environment.
[2022-02-18 19:22] VITALS: BP 151/85
[2022-02-18] MEDS: traZODone 50mg tablet PO SCH (20:50)
--- NOTE | 2022-02-18 21:52 | NUR ---
Nursing Progress Note: Problem: Pt was admitted to [facility] from ER overflow on 02/13/22. Pt was found on neighbor's lawn and EMS was called. Patient was positive for methamphetamine. PT reports drinking 1 mixed drink per day but has not had any alcohol since 02/10/22. Pt was placed on a 5150 for behaving impulsively and erratically, making nonsensical statements and presenting disorganized. Pt has history of bipolar disorder and a history of psych hospitalizations. Diabetic type 2, HTN. Interventions: Establishment of rapport, ensured contract for safety, therapeutic conversation, active listening, medication administration/education/monitoring, monitoring glucose, provided distraction, direction, positive reinforcement, and Q15 minute safety checks. Response: Pt was in the group room having dinner. Pt reports she is feeling better since she arrived and she is ready to go home but knows her can't come and get her until . Pt states she is glad to have the room change she had and feels like her medicine is working for her, as she is feeling well rested in the morning. Pt talks about how much she likes [employer] juice bars when she is home and wonders if these are healthy to eat. Suggested she look at the nutrition label and talk with her provider about what she eats at home. Pt took HS meds and went to sleep. Plan: Patient will discharge on February 20 after 1800 ( will pick her up from his way home from work in [place]. Patient's will pick her up at 1800 or shortly thereafter.) Patient requires interruption of current crisis and medication adjustments in a safe and therapeutic environment.
[2022-02-19 07:25] VITALS: BP 147/82
[2022-02-19] MEDS: levoTHYROXINE 125mcg tablet PO SCH (07:50)
[2022-02-19] MEDS: ARIPIPRAZOLE 10 MG TABLET PO SCH (08:01)
[2022-02-19 08:02] VITALS: BP_SYST 147
[2022-02-19] MEDS: pantoprazole 40mg Tablet.DR PO SCH (08:02)
[2022-02-19] MEDS: lisinopril 20mg tablet PO SCH (08:02)
[2022-02-19] MEDS: amLODIPine 5mg tablet PO SCH (08:02)
[2022-02-19] MEDS: atorvastatin 20mg tablet PO SCH (08:03)
[2022-02-19] MEDS: ferrous sulfate 325mg tablet PO SCH (08:03)
[2022-02-19] MEDS ORDERED: FERR325T28 PO (13:25)
[2022-02-19] MEDS ORDERED: ARIP10TA15 PO (13:25)
[2022-02-19] MEDS ORDERED: OMEP20CA16 PO (13:25)
[2022-02-19] MEDS ORDERED: NICO-907 BC (13:25)
[2022-02-19] MEDS ORDERED: ATOR20TA66 PO (13:25)
[2022-02-19] MEDS ORDERED: NICOTINE POLACRILEX 2 MG LOZENGE BC PRN (13:40)
--- NOTE | 2022-02-19 15:40 | NUR ---
DISCHARGE NOTE: Pt. discharged to home, picked up by her . Pt. discharged with all belongings and valuables. RN went over all discharge paperwork with pt. and pt. verbalized understanding and signed all paperwork, including firearms restriction, discharge medications and f/u appointments, and emergency phone numbers (including 911). Pt. denies SI/HI, A/V hallucinations. Pt. is A&Ox4 and in no apparent distress.
[2022-02-19] MEDS ORDERED: ferrous sulfate 325mg tablet PO SCH (20:00)
[2022-02-20] MEDS ORDERED: atorvastatin 20mg tablet PO SCH (08:00)
[2022-02-20] MEDS ORDERED: ARIPIPRAZOLE 10 MG TABLET PO SCH (08:00)
== END 2022-02-19 15:40 | disposition home or self-care (01) | DRG 885 ==
LOC: ER 21:48 → ED HOLD 02-13 16:50 → ADULT MH 02-13 19:58
PROVIDERS: ADMIT Psychiatry & Neurology Psychiatry; ATTEND Psychiatry & Neurology Psychiatry
DX: F31.9 Bipolar disorder, unspecified (principal); N17.9 Acute kidney failure, unspecified; N18.9 Chronic kidney disease, unspecified; F15.159 Other stimulant abuse with stimulant-induced psychotic disorder, unspecified; D72.829 Elevated white blood cell count, unspecified; E03.9 Hypothyroidism, unspecified; Z20.822 Contact with and (suspected) exposure to COVID-19; E11.22 Type 2 diabetes mellitus with diabetic chronic kidney disease; F15.10 Other stimulant abuse, uncomplicated; D50.9 Iron deficiency anemia, unspecified; I12.9 Hypertensive chronic kidney disease with stage 1 through stage 4 chronic kidney disease, or unspecified chronic kidney disease; K21.9 Gastro-esophageal reflux disease without esophagitis; E78.5 Hyperlipidemia, unspecified; E66.9 Obesity, unspecified; E86.0 Dehydration; F17.210 Nicotine dependence, cigarettes, uncomplicated; Z68.28 Body mass index [BMI] 28.0-28.9, adult; Z79.899 Other long term (current) drug therapy; Z71.6 Tobacco abuse counseling
CPT/HCPCS: 36415; 80053; 80061; 80305; 80320; 81001; 82140; 82948; 84443; 85008; 85025; 87081; 87088; 87811; 99285; J1200; J1610; J1630; J1815; J2060; J7030